=== PATIENT | male | born 2000 | race Caucasian/White ===

== ENCOUNTER 2023-04-25 21:07 | Emergency (ER) | payer OTHER ==
[2023-04-25] MEDS ORDERED: Lidocaine/Epineph/Tetracaine 3 ML Syringe TOP ONE (23:15)
[2023-04-25] MEDS ORDERED: Diphtheria,Pertussis(Acell),Tetanus Vaccine 0.5 ML Syringe IM ONE (23:15)
[2023-04-25] MEDS ORDERED: Acetaminophen 325 MG Tab PO ONE (23:15)
[2023-04-25] MEDS ORDERED: Ibuprofen 400 MG Tab PO ONE (23:15)
[2023-04-26] MEDS ORDERED: Octyl 2-Cyanoacrylate 1 g/1 mL 1 APPLIC PEN TOP ONE (01:17)
== END 2023-04-26 01:33 | disposition home or self-care (01) ==
LOC: MW.ED 21:07
DX: S91.311A Laceration without foreign body, right foot, initial encounter (principal); Z23 Encounter for immunization; W26.0XXA Contact with knife, initial encounter; Y93.89 Activity, other specified
CPT/HCPCS: 12001; 90471; 90715; 99283; A9270